=== PATIENT | female | born 1955 | race Caucasian/White ===

== ENCOUNTER → 2016-07-03 | Outpatient (CLI) | payer BC ==
[~2016-07-03] MED LIST: AMBIEN CR12.5 MG PO; AMLO5TAB PO; BAYER ASPIRIN C81 MG PO; BAYER ASPIRIN R81 MG PO; CHONDROITIN PO; CLONIDINE HCL0.1 M1 PO; FEXOFENADINE180 MG OR; GLU PO; GLUCOSAMINE CHO1 TAB PO; LASIX40 MG PO; LEVAQUIN 750 M750 MG PO; LORAZEPAM0.5 MG/TAB FT; MACROBID 100MG100 MG PO; METOPROLOL SUCC25 M1 PO; METOPROLOL25 MG PO; NEURONTIN 100100 MG PO; NORCO 325 MG-51 TAB PO; PEPCID COMPLETE1 CTB PO; PRAVACHOL 20MG.20 MG PO; PRENATAL1 TA2 PO; PRILOSEC20 M1 PO; PROAIR HFA0.09 MG/AC IH; STOOL SOFTENER100 MG PO; TARKA 2 MG-2401 TER PO; TARKA 4 MG-2401 TER PO; THE MEDICINE S300 MG PO; TOPAMAX50 MG PO; UROCIT-K 1010 MEQ PO; VIA IN; VITAMIN C100 M2 PO; VITAMIN D1 TAB PO; VOLTAREN1% TP; [UNRECOGNIZED DRUG - OTHER]; [UNRECOGNIZED DRUG - OTHER] IN; [UNRECOGNIZED DRUG - OTHER] PO; [UNRECOGNIZED DRUG - REMARK] PO
== END ==
LOC: SL 10:13
DX: G47.33 Obstructive sleep apnea (adult) (pediatric) (principal)
CPT/HCPCS: G0399-TC